=== PATIENT | female | born 1975 ===

== ENCOUNTER → 2018-03-25 | Day surgery (SDC) | payer OTHER ==
[2018-03-22 13:48] VITALS: Ht 165.1 cm; Wt 68.2 kg
[~2018-03-25] VITALS: Ht 165.1 cm; Wt 68.2 kg
[~2018-03-25] MED LIST: ATROPINE SULFATE 0.1 MG/ML 5ML SYR IV PRN; CEFAZOLIN 1000MG IV PUSH 7.5 ML IV SCH; CEFAZOLIN SOD 1000MG/7.5 ML IV PUSH ONE; DEXAMETHASONE SOD INJ 4 MG/ML VIAL ONE; EpHEDrine SULFATE INJ 50 MG/ML AMP IV PRN; FENTANYL CITRATE INJ 50 MCG/1 ML 2 ML VIAL ONE; HYDR-5688 PO; HYDROCODONE/ACETAMIN 5/325MG TAB PO PRN; KETAMINE HCL INJ 50 MG/ML 10 ML VIAL ONE; LIDOCAINE HCL 2% 2 ML VIAL (20MG/ML) ONE; LIDOCAINE/EPINEPHRINE 1% 20 ML VIAL ONE; MIDAZOLAM HCL 1 MG/ML 2ML VIAL ONE; MULT-506 PO; ONDANSETRON INJ 2 MG/ML 2 ML VIAL IV PRN; ONDANSETRON INJ 2 MG/ML 2 ML VIAL ONE; PARO1TAB27 PO; PATIENT'S ALLERGY INFO NEEDS ENTERED SCH; PATIENT'S HEIGHT AND/OR WEIGHT NEEDED SCH; PROPOFOL IV EMULSION 10 MG/ML 20 ML VIAL ONE; ROPIVACAINE 0.5% 5 MG/ML 30 ML VIAL ONE; SILVER SULFADIAZINE 1% CR 50 GM JAR EXT ONE; SODIUM CHLORIDE 0.9% 1000ML 1,000 ML IV SCH; SODIUM CHLORIDE 0.9% INJ 10 ML VIAL ONE; VITAMIN D PO; [UNRECOGNIZED DRUG - REMARK] SCH
--- NOTE | 2018-03-25 14:04 | History & Physical Bridge - [place] ---
H&P Re-Evaluation Bridge Note: I have examined the patient, reviewed the History & Physical and in the interval since the performance of the History & Physical I have noted the following changes of clinical significance: No changes noted. Patient is in agreement and wishes to proceed with CO2 laser excision verruca right heel. All consents have been signed and obtained.
--- NOTE | 2018-03-25 14:07 | Discharge Instructions-SurgCtr ---
Discharge Instructions Date of Service Mar 25, 2018. Visit Reason for Visit: Plantar Wart Discharge Discharge Diagnosis / Problem: Plantar verruca right heel Discharge Goals Goal(s): Decrease discomfort, Improve function Activity Recommendations Activity Limitations: as noted below Shower/Bathe: keep incision dry Weightbearing Status: Right non-weightbearing Anesthesia . Post Anesthesia Instructions: If you have had General Anesthesia or IV Sedation: * Do not drive today. * Resume driving when surgeon permits. * Do not make important decisions or sign legal documents today. * Call surgeon for: 1. Temperature elevations greater than 101 degrees F. 2. Uncontrollable pain. 3. Excessive bleeding. 4. Persistent nausea and vomiting. 5. Medication intolerance (nausea, vomiting or rash). * For nausea and vomiting use only clear liquids such as: tea, soda, bouillon until nausea subsides, then gradually increase diet as tolerated. * If you have any concerns or questions, call your surgeon's office. If physician is unavailable and it is an emergency, call 911 or go to the nearest emergency room. . Diet Recommendations Home Diet: resume previous diet Procedures Procedures Performed: Right plantar heel CO2 laser verruca excision Pending Studies Studies pending at discharge: no Medical Emergencies . Who to Call and When: Medical Emergencies: If at any time you feel your situation is an emergency, please call 911 immediately. . Non-Emergent Contact Non-Emergency issues call your: Primary Care Provider, Surgeon Call Non-Emergent contact if: you have a fever, your pain is not controlled, your pain is worsening, wound has increased drainage, wound has increased redness, wound has increased pain . . "Provider Documentation" section prepared by Lawrence Maynard. . [place] Drug Monitoring Program Search Results: no issues identified
--- NOTE | 2018-03-25 14:39 | [facility] Post Operative Brief Note ---
Immediate Operative Summary Operative Date Mar 25, 2018. Pre-Operative Diagnosis PLANTAR verruca right heel Post-Operative Diagnosis SAME Procedure(s) Performed Right Heel Surgical Treatment And Excision Of Benign Neoplasms (Plantar Verruca ) Right Heel Using Laser Ablation With CO2 Laser Surgeon DR. Nuha SMITH Executive Vice President And Chief Financial Officer Surgeon(s) NONE Estimated Blood Loss 2 ML Findings Consistent with Post-Op Diagnosis Specimens NONE Drains None Anesthesia Type MAC Complication(s) none Disposition Accompanied Pt To Recover: no
[2018-03-25 14:52] VITALS: TEMP 36.3
--- NOTE | 2018-03-25 16:20 | DIAGNOSTIC IMAGING REPORT ---
SURGICNTR CHEST 1 VIEW PORTABL HISTORY: 42 years-old Female low sats acute hypoxia COMPARISON: None available TECHNIQUE: Portable AP view of the chest FINDINGS: Cardiac silhouette appears be within the upper limits of normal. Mild to moderate right hemidiaphragmatic elevation. Linear subsegmental bibasilar and bilateral midlung densities are noted without pneumothorax, large pleural effusion or overt pulmonary edema. Bones appear grossly intact. Cholecystectomy clips noted. IMPRESSION: Linear subsegmental bibasilar and midlung opacities suggest atelectasis. The above report was generated using voice recognition software. It may contain grammatical, syntax or spelling errors. Electronically signed by: Christopher Holm M.D. 03/25/2018 4:19 PM Dictated Date/Time: 03/25/2018 4:17 PM
[2018-03-25 16:32] VITALS: BP 108/70; PULSE 79; O2SAT 94
--- NOTE | 2018-03-25 16:54 | Anesthesiology Progress Note ---
Anesthesia Post Op Note Date & Time Mar 25, 2018 at 16:51 Vital Signs Pain Intensity: 0 Vital Signs Past 12 Hours Date Time Temp Pulse Resp B/P (MAP) Pulse Ox O2 Delivery O2 Flow Rate FiO2 03/25/18 16:32 79 18 108/70 (83) 94 Room Air 03/25/18 15:24 76 16 110/72 (85) 93 Room Air 03/25/18 14:52 36.3 98 16 123/76 (92) 96 Nasal Cannula 2 03/25/18 13:40 36.7 87 16 109/77 (88) 95 Room Air Notes Mental Status: alert / awake / arousable, participated in evaluation Pt Amnestic to Procedure: Yes Nausea / Vomiting: adequately controlled Pain: adequately controlled Airway Patency, RR, SpO2: stable & adequate BP & HR: stable & adequate Hydration State: stable & adequate Anesthetic Complications: no major complications apparent Patient sats dropping in to the 80s post op. She is asymptomatic with no cough , dyspnea, or chest pain. Lungs are clear on auscultation. ISB given but patient gives relatively poor voluntary effort despite good teaching from RNs. CXR done to r/o aspiration showed atelectasis only. Slow improvement in baseline sats. Given her CXR findings and low risk for PE, and minimal to non existant narcotic requirements, I am comfortable allowing the patient to dispo from the surgicenter with strict instructions to return to the ED if she becomes short of breath or develops any chest pain. Encouraged deep breathing and cough and OOB mobilization as much as is tolerated. Her was present for this discussion and both agree to this plan.
--- NOTE | 2018-03-25 19:27 | [facility] Operative Report ---
Operative Report Operative Date Mar 25, 2018. Pre-Operative Diagnosis PLANTAR verruca right heel Post-Operative Diagnosis SAME Procedure(s) Performed Right Heel Surgical Treatment And Excision Of Benign Neoplasms (Plantar Verruca ) Right Heel Using Laser Ablation With CO2 Laser Surgeon DR. Nuha SMITH Gas Mask Inspector Surgeon(s) NONE Estimated Blood Loss 2 ML Specimens NONE Drains None Anesthesia Type MAC Complication(s) none Disposition no Indications This is a very pleasant 42 year old female with past medical history of anxiety who presented to our office with painful verruca to her right heel. Lesions measure approximately 1.0 cm x 2.5 cm x 0.2 cm. Patient initially attempted conservative treatment, consisting of acid therapy and periodic debridements, both of which failed to alleviate her symptoms. Patient is in agreement and wishes to proceed with CO2 laser excision of plantar verruca to right heel. The perioperative indications, planned procedure, possible benefits, risks, complications, and anticipated healing time and management were discussed in detail with the patient. She understands and elects to proceed with surgery at this time. All consents have been signed. No guarantees were made. All questions have been answered to the patient's satisfaction. Medical clearance has been obtained by the patients primary care physician. Description of Procedure Under mild sedation the patient was brought into the Operating Room and placed on the Operating Room table in the supine position. Final verification of the patient, surgery, and limb designation was performed via the time-out procedure. IV local sedation was then initiated by the anesthesia team. Local block was then administered to the operative site of the right foot consisting of 10 cc of 0.5 % ropivacaine plain.The right foot was then scrubbed, prepped, and draped in the usual aseptic manner. At this time, surgery began as follows: Attention was directed to the plantar aspect of the right heel where the CO2 laser was utilized to destruct multiple verruciform lesions. Next, a rongeur was utilized to excise the lesion down to, but not exceeding, the basement membrane. A curette was then used to excise any remaining verrucous lesions. The operative area was then inspected and no remaining verrucous lesions were demonstrated. A postoperative dressing consisting of Silvadene ointment, followed by 4x4 gauze , abd pads, kerlix and an estella wrap were applied to the right foot. Patient tolerated the anesthesia and procedure very well, was transferred to the PACU with all vital signs stable and brisk capillary refill time noted in all toes of the right foot. Patient's intraoperative and postoperative disposition was discussed with the family in the postoperative consultation area. Again discussed with family viral etiology of plantar verruca and recommend close monitoring for recurrence. I attest to the content of the Intraoperative Record and any orders documented therein. Any exceptions are noted below.
--- NOTE | 2018-03-31 08:54 | EDITING REQUIRED CODING QUERY ---
CODING CLARIFICATION Please clarify below the number of verruca removed: (X ) Up to 14 verruca removed ( ) Greater than 14 verruca removed ( ) Other, please clarify: Thank you for your assistance, Erum Torrez - [place]
== END | disposition home or self-care (01) ==
LOC: X.SURG 13:31
PROVIDERS: ATTEND Podiatrist Foot & Ankle Surgery
DX: B07.0 Plantar wart (principal); F32.1 Major depressive disorder, single episode, moderate; E04.1 Nontoxic single thyroid nodule; H26.9 Unspecified cataract; Z87.891 Personal history of nicotine dependence